=== PATIENT | female | born 1965 | race Caucasian/White ===

== ENCOUNTER 2019-12-16 12:51 | Inpatient (IN) | payer BC, OTHER ==
[2019-12-16 14:04] LABS: Urine Blood NEGATIVE (NEG); Urine Glucose NEGATIVE (NEG); Urine Protein TRACE (NEG); Urine Specific Gravity 1.025 (1.005-1.030); Urine pH 5.5 (5.0-7.0)
[2019-12-16 14:06] LABS: Urine Bacteria 20-50 /HPF (<20); Urine Culture Reflex Order REFLEXED; Urine Mucus 1+ /HPF (NONE SEEN); Urine RBC <5 /HPF (NONE SEEN)
[2019-12-16] MEDS ORDERED: NA CHLORIDE 0.9% 500 ML ONE (14:16)
[2019-12-16] MEDS ORDERED: MEPERIDINE HCL 25 MG/0.5 ML ONE (14:16)
--- NOTE | 2019-12-16 15:51 | RAD REPORT ---
EXAM DESCRIPTION: CT - Abdomen Pelvis Wo Contrast - 12/16/2019 3:44 pm CLINICAL HISTORY: Abdominal pain. ABD PAIN COMPARISON: No comparisons TECHNIQUE: CT imaging of the abdomen and pelvis was performed without contrast. Solid organ and vasc ular assessment is limited due to lack of IV contrast. All CT scans are performed using dose optimization technique as appropriate and may include automated exposure control or mA/KV adjustment according to patient size. FINDINGS: The lower lung serrano are clear. The liver, spleen, pancreas, adrenal glands and kidneys are within normal limits for a limited non-co ntrast examination.22 mm right renal cyst. No bowel obstruction, free air, free fluid or abscess. Appendix is dilated to 18 mm with surrounding inflammatory changes compatible with acute appendicitis. Prominent air bubble in the appendix is fior picious for early perforation. The osseous structures are within normal limits. IMPRESSION: Acute appendicitis with findings of early perforation noted. A limited non-contrast examination was performed as detailed.
--- NOTE | 2019-12-16 16:14 | EDPHYS ---
Physician Documentation [facility] Name: Sylwia Jones Age: 54 yrs Sex: Female : 1965 Arrival Date: 12/16/2019 Time: 12:54 Bed 14 Private MD: ED Physician Janak Varner HPI: 12/15 14:29 This 54 yrs old Female presents to ER via Wheelchair with complaints of rn Constipation, Abdominal Pain, Fever, Headache. 14:29 The patient reports fever, not measured (subjective). Onset: The symptoms/episode rn began/occurred 4 day(s) ago. Modifying factors: there are no obvious modifying factors. Severity of symptoms: At their worst the symptoms were mild in the emergency department the symptoms are unchanged. The patient has experienced similar episodes in the past. Reports several days of constipation followed by non-bloody diarrhea and lower abd cramping, + darker urine, feels like similar to 's diverticulitis, came for evaluation of diverticulitis. . 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 - Social history:: Smoking status: unknown. - Family history:: not pertinent. - Hospitalizations: : No recent hospitalization is reported. ROS: 14:29 Constitutional: Negative for chills, and weight loss, Eyes: Negative for injury, pain, rn redness, and discharge, Neck: Negative for injury, pain, and swelling, Cardiovascular: Negative for chest pain, palpitations, and edema, Respiratory: Negative for shortness of breath, cough, wheezing, and pleuritic chest pain, Abdomen/GI: + lower abd pain and diarrhea : + darker urine MS/Extremity: Negative for injury and deformity, Skin: Negative for injury, rash, and discoloration, Neuro: Negative for numbness, tingling, and seizure. Exam: 14:29 Constitutional: This is a well developed, well nourished patient who is awake, alert, rn and in no acute distress. Head/Face: Normocephalic, atraumatic. ENT: MMM Cardiovascular: Regular rate and rhythm. No pulse deficits. Respiratory: No increased work of breathing, no retractions or nasal flaring. Abdomen/GI: soft, + mild LLQ/RLQ/suprapubic tenderness Skin: Warm, dry MS/ Extremity: Pulses equal, no cyanosis. Neuro: Awake and alert, GCS 15 Vital Signs: 13:03 BP 126 / 71; Pulse 95; Resp 17; Temp 98.1; Pulse Ox 99% ; Weight 100.7 kg; Height 5 ft. bp 7 in. (170.18 cm); 14:00 BP 116 / 67; Pulse 100; Resp 16; Pulse Ox 98% ; bp 15:08 BP 101 / 64; Pulse 98; Resp 16; Pulse Ox 97% ; bp 15:38 BP 107 / 65; Pulse 95; Resp 16; Pulse Ox 100% ; bp 16:00 BP 119 / 71; Pulse 94; Resp 16; Temp 99.0(TE); Pulse Ox 100% on R/A; mh5 17:33 BP 115 / 67; Pulse 98; Resp 16; Pulse Ox 99% ; bp 13:03 Body Mass Index 34.77 (100.70 kg, 170.18 cm) bp MDM: 13:17 Patient medically screened. rn 16:12 Differential diagnosis: viral Infection, bacterial infection, gastroenteritis, rn diverticulitis, appendicitis. Data reviewed: vital signs, nurses notes, lab test result(s), radiologic studies, CT scan, and as a result, I will admit patient. Counseling: I had a detailed discussion with the patient and/or guardian regarding: the historical points, exam findings, and any diagnostic results supporting the discharge/admit diagnosis, lab results, radiology results, the need for further work-up and treatment in the hospital. Response to treatment: the patient's symptoms have mildly improved after treatment. Admission orders: after a detailed discussion of the patient's condition and case, the admit orders are written by me. 16:16 ED course: Consulted with Dr. 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 . 12/15 13:26 Order name: Basic Metabolic Panel rn 12/15 13:26 Order name: CBC with Diff rn 12/15 13:26 Order name: Creatinine for rn transfer 12/15 13:26 Order name: Hepatic Function rn 12/15 13:26 Order name: Lipase rn 12/15 13:26 Order name: Urine Microscopic Only; Complete Time: 14:35 rn 12/15 13:59 Order name: Urine Dipstick--Ancillary (enter results); Complete Time: 14:35 eb 12/15 13:59 Order name: Urine --Ancillary (enter results); Complete Time: 14:35 12/15 14:07 Order name: Urine Culture EDIA 12/15 15:45 Order name: Abdomen ; Complete Time: 15:59 EDIA 12/15 13:26 Order name: IV Saline Lock; Complete Time: 14:17 rn 12/15 13:26 Order name: Labs collected and sent; Complete Time: 14:17 rn 12/15 13:26 Order name: Urine Dipstick-Ancillary (obtain specimen); Complete Time: 14:15 rn Administered Medications: 13:45 Drug: NS 0.9% 500 ml Route: IV; Rate: bolus; Site: right antecubital; bp 17:10 Follow up: IV Status: Completed infusion; IV Intake: 500ml bp 13:50 Drug: Demerol 25 mg Route: IVP; Site: right antecubital; bp 15:09 Follow up: Response: Pain is decreased bp 16:10 Drug: Zosyn 3.375 grams Route: IVPB; Infused Over: 60 mins; Site: right antecubital; bp 17:10 Follow up: IV Status: Completed infusion; IV Intake: 100ml bp Disposition: 12/16/19 16:13 Hospitalization ordered by Be Rasheed for Inpatient Admission. Preliminary diagnosis is Acute appendicitis - With Microperforation. - Bed requested for Telemetry/MedSurg (Inpatient). - Status is Inpatient Admission. bp - Condition is Stable. - Problem is new. - Symptoms have improved. Signatures: Dispatcher [employer] EDIA Janak Varner MD MD rn Aguilar, Jose RN RN Bernardino Sandoval RN RN Shanell Vásquez Corrections: (The following items were deleted from the chart) 15:45 13:27 Abdomen Pelvis W Con+CT.RAD.BRZ ordered. EDIA EDIA 16:14 16:13 Hospitalization Ordered by Be Rasheed MD for Inpatient Admission. Preliminary rn diagnosis is Acute appendicitis. Bed requested for Telemetry/MedSurg (Inpatient). Status is Inpatient Admission. Condition is Stable. Problem is new. Symptoms have improved. rn 16:28 16:14 12/16/2019 16:13 Hospitalization Ordered by Be Rasheed MD for Inpatient eb Admission. Preliminary diagnosis is Acute appendicitis - With Microperforation. Bed requested for Telemetry/MedSurg (Inpatient). Status is Inpatient Admission. Condition is Stable. Problem is new. Symptoms have improved. rn 16:34 16:28 12/16/2019 16:13 Hospitalization Ordered by Be Rasheed MD for Inpatient ja1 Admission. Preliminary diagnosis is Acute appendicitis - With Microperforation. Bed requested for Telemetry/MedSurg (Inpatient). Status is Inpatient Admission. Condition is Stable. Problem is new. Symptoms have improved. eb 17:34 16:34 12/16/2019 16:13 Hospitalization Ordered by Be Rasheed MD for Inpatient bp Admission. Preliminary diagnosis is Acute appendicitis - With Microperforation. Bed requested for Telemetry/MedSurg (Inpatient). Status is Inpatient Admission. Condition is Stable. Problem is new. Symptoms have improved. ja1
--- NOTE | 2019-12-16 16:14 | ER ---
Nurse's Notes [facility] Name: Sylwia Jones Age: 54 yrs Sex: Female : 1965 Arrival Date: 12/16/2019 Time: 12:54 Bed 14 Private MD: Diagnosis: Acute appendicitis-With Microperforation Presentation: 12/15 13:03 Chief complaint: Patient states: ABDOMINAL CRAMPING, DIARRHEA x4 DAYS. Coronavirus bp screen: Proceed with normal triage. Ebola Screen: No symptoms or risks identified at this time. Initial Sepsis Screen: Does the patient meet any 2 criteria? No. Patient's initial sepsis screen is negative. Does the patient have a suspected source of infection?. Risk Assessment: Do you want to hurt yourself or someone else? Patient reports no desire to harm self or others. Onset of symptoms is unknown. 13:03 Method Of Arrival: Wheelchair bp 13:03 Acuity: CHARLENE 3 bp Triage Assessment: 13:05 General: Appears in no apparent distress. comfortable, obese, Behavior is calm, bp cooperative, appropriate for age. Pain: Complains of pain in abdomen. EENT: No deficits noted. Neuro: No deficits noted. Cardiovascular: No deficits noted. Respiratory: No deficits noted. GI: No signs and/or symptoms were reported involving the gastrointestinal system. : No signs and/or symptoms were reported regarding the genitourinary system. Derm: No deficits noted. Musculoskeletal: No deficits noted. 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 - Social history:: Smoking status: unknown. - Family history:: not pertinent. - Hospitalizations: : No recent hospitalization is reported. Screenin:13 Abuse screen: Denies threats or abuse. Denies injuries from another. Nutritional bp screening: No deficits noted. Tuberculosis screening: No symptoms or risk factors identified. Fall Risk None identified. Assessment: 13:11 General: SEE TRIAGE NOTE. Pain: Complains of pain in abdomen. Neuro: No deficits noted. bp Cardiovascular: No deficits noted. Respiratory: No deficits noted. GI: Bowel sounds present X 4 quads. Abdomen is tender to palpation X 4 quads. : No signs and/or symptoms were reported regarding the genitourinary system. EENT: No signs and/or symptoms were reported regarding the EENT system. EENT: No deficits noted. Derm: No deficits noted. Musculoskeletal: No deficits noted. 14:00 Reassessment: CT CONTACTED, PT COMPLETED PO CONTRAST. bp 15:08 Reassessment: PT RESTING QUIETLY, VS STABLE. CT PENDING. bp 15:37 Reassessment: PT TO CT WITH DENTAL SERVICES DIRECTOR. bp 16:05 Reassessment: PER MD, CT ABD INDICATES +APPY AND POSSIBLE PERFORATION. SURG C/S PENDING.bp 16:45 Reassessment: PER DR TURNER, PT TO GO TO OR IN NEXT 1 HR. ADMIT ON HOLD FOR OR. bp 17:11 Reassessment: OR AT B/S. PT YULISA FOR SURGERY. bp Vital Signs: 13:03 BP 126 / 71; Pulse 95; Resp 17; Temp 98.1; Pulse Ox 99% ; Weight 100.7 kg; Height 5 ft. bp 7 in. (170.18 cm); 14:00 BP 116 / 67; Pulse 100; Resp 16; Pulse Ox 98% ; bp 15:08 BP 101 / 64; Pulse 98; Resp 16; Pulse Ox 97% ; bp 15:38 BP 107 / 65; Pulse 95; Resp 16; Pulse Ox 100% ; bp 16:00 BP 119 / 71; Pulse 94; Resp 16; Temp 99.0(TE); Pulse Ox 100% on R/A; mh5 17:33 BP 115 / 67; Pulse 98; Resp 16; Pulse Ox 99% ; bp 13:03 Body Mass Index 34.77 (100.70 kg, 170.18 cm) bp ED Course: 12:54 Patient arrived in ED. ag5 12:57 Bernardino Silva, RN is Primary Nurse. bp 13:06 Triage completed. bp 13:10 Arm band placed on. bp 13:17 Janak Varner MD is Attending Physician. rn 13:18 Patient has correct armband on for positive identification. Bed in low position. Call mh5 light in reach. Side rails up X 1. Warm blanket given. Pulse ox on. NIBP on. 14:02 Patient has correct armband on for positive identification. [facility] 14:02 Initial lab(s) drawn, by wa, sent to lab. Urine collected: clean catch specimen, clear. 5 Inserted saline lock: 22 gauge in right antecubital area, using aseptic technique. Blood collected. 15:43 CT completed. Patient tolerated procedure well. Patient moved back from CT. 3 16:13 Be Rasheed MD is Hospitalizing Provider. rn 17:12 No provider procedures requiring assistance completed. Patient admitted, IV remains in bp place. Administered Medications: 13:45 Drug: NS 0.9% 500 ml Route: IV; Rate: bolus; Site: right antecubital; bp 17:10 Follow up: IV Status: Completed infusion; IV Intake: 500ml bp 13:50 Drug: Demerol 25 mg Route: IVP; Site: right antecubital; bp 15:09 Follow up: Response: Pain is decreased bp 16:10 Drug: Zosyn 3.375 grams Route: IVPB; Infused Over: 60 mins; Site: right antecubital; bp 17:10 Follow up: IV Status: Completed infusion; IV Intake: 100ml bp Intake: 17:10 IV: 500ml; Total: 500ml. bp 17:10 IV: 100ml; Total: 600ml. bp Outcome: 16:13 Decision to Hospitalize by Provider. rn 17:12 Admitted to OR accompanied by nurse, via stretcher. bp 17:12 Condition: stable 17:12 Instructed on the need for admit. 17:34 Patient left the ED. bp Signatures: Dispatcher [employer] EDMS Janak Varner MD MD rn Martinez, Maria [facility] Bernardino Silva RN RN bp Willis, Michelle 3 Sadia Zamorano 5 Corrections: (The following items were deleted from the chart) 15:45 15:44 In radiology for Abdomen Pelvis W Con+CT.RAD.BRZ. EDMS EDMS 16:05 16:00 BP 119 / 71; Pulse 94bpm; Resp 16bpm; Pulse Ox 100% RA; 5 [facility]
[2019-12-16] MEDS ORDERED: PIPER/TAZO/NS 3.375gm 3.375 GM/100 ML BAG ONE (16:15)
[2019-12-16] MEDS ORDERED: propofoL 200 MG/20 ML VIAL IV ONE (17:06)
[2019-12-16] MEDS ORDERED: FENTANYL CITR 100 MCG/2 ML ONE (17:06)
[2019-12-16] MEDS ORDERED: ONDANSETRON 4 MG/2 ML VIAL ONE (17:07)
[2019-12-16] MEDS ORDERED: GLYCOPYRROLATE 0.2 MG/ML SYR ONE (17:07)
[2019-12-16] MEDS ORDERED: MIDAZOLAM HCL 2 MG/2 ML INJ ONE (17:07)
[2019-12-16] MEDS ORDERED: ROCURONIUM 50 MG/5 ML VIAL IV ONE (17:08)
[2019-12-16] MEDS ORDERED: KETOROLAC 30 MG/ML INJ ONE (17:08)
[2019-12-16] MEDS ORDERED: MORPHINE 10 MG/ML VIAL ONE (17:08)
[2019-12-16] MEDS ORDERED: NEOSTIGMINE 1 MG/ML -5 ML ONE (17:09)
[2019-12-16] MEDS ORDERED: METOCLOPRAMIDE 10 MG/2mL INJ ONE (17:09)
[2019-12-16] MEDS ORDERED: LIDOCAINE 1% MPF 5 ML VIAL ONE (17:10)
[2019-12-16 17:24] LABS: Basophils % 0.5 % (0-1.3); Hematocrit 37.9 % (36.0-45.0); MPV 7.3 fL (7.6-11.3); RBC Red Blood Cell Count 4.42 M/uL (3.86-4.86)
[2019-12-16] MEDS ORDERED: Ringers Lactate 1,000 ML IV ONE ×2 (17:28→19:20)
[2019-12-16 17:40] LABS: ALT/SGPT 40 U/L (12-78); AST/SGOT 29 U/L (15-37); Albumin 2.9 g/dL (3.4-5.0); Alkaline Phosphatase 96 U/L (45-117); BUN Blood Urea Nitrogen 10 mg/dL (7-18); Bicarbonate 25 mmol/L (21-32); Bilirubin Direct 0.2 mg/dL (0-0.2); Bilirubin Total 0.5 mg/dL (0.2-1.0); Glucose Level 92 mg/dL (74-106); Lipase 82 U/L (73-393); Protein, Total 7.6 g/dL (6.4-8.2); Sodium Level 137 mmol/L (136-145)
--- NOTE | 2019-12-16 19:02 | P.BOP ---
Preoperative diagnosis: Perforated appendicitis, peritonitis Postoperative diagnosis: same plus intrabdominal abscess, intrabdominal adhesions Primary procedure: 1. Laparoscopic perforated appendectomy Secondary procedure: 2. Laparoscopic extensive lysis of adhesions Other procedure(s): 3. Laparoscopic drainage of intrabdominal abscess Estimated blood loss: <20cc Specimen: appendix, intraabd abscess culture Findings: see dictation Anesthesia: General Complications: None Drain(s): SERG drain Transferred to: Recovery Room Condition: Good
[2019-12-16] MEDS ORDERED: ONDANSETRON 4 MG/2 ML VIAL IV PRN (19:06)
[2019-12-16] MEDS ORDERED: HYDROMORPHONE HCL 1 MG/ML INJ IV PRN (19:25)
[2019-12-16] MEDS ORDERED: PROMETHAZINE INJ 25 MG/ML AMP ONE (19:36)
[2019-12-16] MEDS ORDERED: Levofloxacin 750mg IV 750 MG/150 ML BAG IV SCH (20:00)
[2019-12-16 20:23] VITALS: BMI 40.6
[2019-12-16] MEDS: NA CHLORIDE 0.9% 1,000 ML IV SCH (21:21)
--- NOTE | 2019-12-16 21:52 | HP ---
Date of Admission: 12/16/2019 Diagnosis: Acute appendicitis, peritonitis, perforated appendix. History Of Present Illness: This is the case of a 54-year-old patient, who has pain for about 4 days . She is normally constipated, so she thought that is what she had, but in the last few hours it got worse to the point that she had to come to the ER. She was having fevers over 101 and a belly ache. She came to the ER, did entire workup, found to have a ruptured appendix. Surgical consult was imm ediately called. The patient states fever of 101, denies any shortness of breath or any chest pain, any dysuria, hematuria, hematochezia, or melena. Patient was advised the importance of colonoscopies . Medical History: Hypothyroidism. Medications: Thyroid medication. Allergies: IODINE AND CELEBREX. Past Surgical History: Include 3 C-sections and a tubal ligation. Social History: She does not smoke, she does not drink alcohol. Review of Systems: Ten points otherwise unremarkable. Physical Examination: General: Patient is awake and alert. HEENT: Pupils are equal and reactive, anicteric. Neck: Supple. Chest: Clear. Abdomen: Right lower quadrant tenderness with guarding and rebound. Psoas signs positive. Rovsing sign positive. Breasts: Deferred. Pelvic: Deferred. Rectal: Deferred. Extremities: Good capillary refill. Neurologic: Cranial nerves 2 through 12 grossly within normal limits. Laboratory Data: Blood work shows WBC count of 16.9, hemoglobin of 12.5, potassium is 4.0, lipase 82 . CAT scan of the abdomen and pelvis interpreted by Dr. Lennon as acute appendicitis with early perfor ation. Assessment: This is a 54-year-old patient, with perforated appendicitis, peritonitis, acute abdomina l pain, intractable abdominal pain. The patient fully explained the need for emergent laparoscopic, possible open appendectomy with benefits, alternatives, and risks, including, but not limited to infe ction, bleeding, damage to adjacent structures, anesthesia complication, [place], and even . She als o understands this may not relieve any symptoms, she might need more than one surgical intervention. She understands we are in a national emergency situation. There is a risk for a coronavirus around, but her case is so emergent that have to be done. She may end up with a drain. She was advised the importance of following with the doctor recommendations and take her antibiotics postoperatively. Jojo orlandowallace understood, signed the consent. The OR was immediately called emergently. DARLENE Voice ID: [id number]
--- NOTE | 2019-12-16 23:18 | OP ---
Date of Procedure: 12/16/2019 Surgeon: Be Rasheed MD Preoperative Diagnosis: Perforated appendicitis, peritonitis. Postoperative Diagnosis: Perforated appendicitis, peritonitis plus intraabdominal abscess, intraabdo ladarius adhesions. Procedure: Laparoscopic perforated appendectomy, laparoscopic lysis of adhesions, laparoscopic drain age of intraabdominal abscess. Specimen: Appendix and intraabdominal abscess culture. Anesthesia: General plus local. Findings: Patient has a perforated appendix. The patient has multiple adhesions, patient has previo us C-sections x3. Those adhesions have to be removed in order for us to get access to the appendix. Patient also and intraabdominal abscess. Indications: This is the case of a female who comes to us with acute perforated appendicitis, acute abdominal pain. The benefits, alternatives, and risks of laparoscopic repair versus open laparoscopi c appendectomy were fully explained to the patient, including not limited to infection, bleeding, dam age to adjacent structures, anesthesia as complications, LA and even . She also understands thi s may not relieve any symptoms. She might need more than one surgical intervention. She understood, signed the consent. Description Of Procedure: The patient was emergently brought to the operating room, placed in supine position. Anesthesia was done without complication. Abdominal area was prepped and draped in a ammy rile fashion. Marcaine 0.5% was injected for local anesthetic, followed by sharp incision of skin in the infraumbilical region. Incision was carried down to the fascia, which was opened under direct v ision. Peritoneum was encountered, opened under direct vision. Vicryl #1 placed inside the fascia. Lele trocar was carefully introduced. No bleeding was obtained. Immediately, we noticed several adhesions may need from the bowel to the ovary and also to the omentum to the large bowel for me to clean that area, I have to do lysis of adhesions. Lysis of adhesions was done with the hel p of two 5 mm trocars placed in the suprapubic and left lower quadrant area under direct visualizatio n and also the LigaSure device, we proceed to do lysis of adhesions to allow access to this appendix. While we spent a significant amount of time of this lysis of adhesions, we were able to visualize t he area of appendix and then after that, I proceeded then to transect the appendix after creating a w indow in the base of the appendix, it seems to be spared from the perforation. The base of the appen [place] was transected with an Endo-ALVIN 45 mm 3.5, and the mesoappendix Endo ALVIN 45 mm 2.5. Appendix rem nick from the abdominal cavity using EndoCatch through the umbilical incision. The area was inspecte d once again. The area of the abscess in the right lower quadrant was carefully and profusely irriga carole until clean. The area of the lysis of adhesions looks intact. The area of the appendix looks in tact. I spent half the time of the surgery just in lysis of adhesions. The area of adhesions shows no enterotomies, no bleeding. At that moment, I proceeded to leave a SERG drain in the right lower travis drant exiting through 1 of the trocar sites and securing that with 3-0 nylon. After that, I proceede d to remove the trocars under direct vision, deflated the pneumoperitoneum, closed the fascia with #1 Vicryl, irrigated subcutaneous tissue, closed that with 3-0 chromic and skin with davis. Sponge c ount and instrument counts were correct. Patient tolerated the procedure well. Patient was sent to Recovery in stable condition. Patient will remain on antibiotics, n.p.o., IV hydration, resuscitatio n. MELANIE/MODL Voice ID: [id number] Report ID: [id number]
[2019-12-17] MEDS: METRONIDAZOLE 500mg IVPB 500 MG/100 ML BAG IV SCH ×5 (00:14→23:53)
[2019-12-17] MEDS: MORPHINE 2 MG/ML SYR IV PRN ×2 (00:44→03:26)
[2019-12-17] MEDS: HYDROCODONE/APAP 5/325 MG TAB PO PRN ×4 (05:04→22:28)
[2019-12-17 05:55] LABS: Absolute Lymphocytes (CBC) 1.6 K/uL (0.7-4.9); Basophils % 0.7 % (0-1.3); Hematocrit 35.6 % (36.0-45.0); Lymphocytes % 7.5 % (15.3-44.8); MPV 7.6 fL (7.6-11.3); RBC Red Blood Cell Count 4.12 M/uL (3.86-4.86)
[2019-12-17] MEDS: NA CHLORIDE 0.9% 1,000 ML IV SCH ×3 (06:00→20:11)
[2019-12-17 06:09] LABS: Potassium 4.1 mmol/L (3.5-5.1); Sodium Level 139 mmol/L (136-145)
[2019-12-17 06:10] LABS: BUN Blood Urea Nitrogen 11 mg/dL (7-18); Bicarbonate 19 mmol/L (21-32); Glucose Level 86 mg/dL (74-106)
[2019-12-17 08:01] LABS: Blood Morphology Comment NOT SEEN (NOT SEEN); Platelet Estimate ADEQ
[2019-12-17] MEDS ORDERED: Levofloxacin 750mg IV 750 MG/150 ML BAG IV SCH (13:00)
[2019-12-17] MEDS: Levofloxacin 750mg IV 750 MG/150 ML BAG IV SCH (15:02)
[2019-12-17 16:55] VITALS: O2SAT 98
[2019-12-18] MEDS: NA CHLORIDE 0.9% 1,000 ML IV SCH ×3 (02:00→22:32)
[2019-12-18] MEDS: METRONIDAZOLE 500mg IVPB 500 MG/100 ML BAG IV SCH ×3 (06:00→17:01)
[2019-12-18] MEDS: HYDROCODONE/APAP 5/325 MG TAB PO PRN ×2 (11:53→17:06)
[2019-12-18 14:04] LABS: Absolute Lymphocytes (CBC) 1.6 K/uL (0.7-4.9); Basophils % 0.8 % (0-1.3); MPV 7.1 fL (7.6-11.3); RBC Red Blood Cell Count 3.98 M/uL (3.86-4.86)
[2019-12-18 14:19] LABS: BUN Blood Urea Nitrogen 4 mg/dL (7-18); Bicarbonate 25 mmol/L (21-32); Glucose Level 130 mg/dL (74-106); Potassium 3.6 mmol/L (3.5-5.1); Sodium Level 140 mmol/L (136-145)
[2019-12-18] MEDS: Levofloxacin 750mg IV 750 MG/150 ML BAG IV SCH (15:07)
[2019-12-19] MEDS: METRONIDAZOLE 500mg IVPB 500 MG/100 ML BAG IV SCH ×3 (00:26→12:26)
[2019-12-19] MEDS: HYDROCODONE/APAP 5/325 MG TAB PO PRN (02:05)
[2019-12-19 10:48] VITALS: BP 123/67; TEMP 97
--- NOTE | 2019-12-20 00:45 | DS ---
Date of Discharge: 12/19/2019 Diagnosis: Perforated appendicitis with abscess. Hospital Course: The patient is doing better, tolerating diet, afebrile. No shortness of breath, no chest pain, no abdominal pain at this time. Review of Systems: Ten points otherwise unremarkable. Physical Examination: Chest: Clear. Abdomen: Soft and depressible. Intact surgical sites. SERG drain, serosanguineous and no pus. Extremities: Good capillary refill. Laboratory Data: Blood work shows WBC count 12.3 coming down from 21. Platelets of 384. Patient expressed her wishes in the beginning to be discharged home as soon as possible, especially d uring this yi virus national crisis. The patient is doing well. She is tolerating diet. No abd ominal pain. So, we have switched the Cipro and Flagyl to by mouth and then we are going to send her home with a soft diet. No heavy lifting. Followup: Follow up in my office on this Tuesday. SERG drain care. If she develops any fever, abdomin al pain, come to the ER immediately. MELANIE/NATALIA Voice ID: [id number] Report ID: [id number]
== END 2019-12-19 15:35 | disposition home or self-care (01) | DRG 337 ==
LOC: ER 12:51 → ERHOLD 17:10 → 2ND 19:55
PROVIDERS: ADMIT Surgery; ATTEND Surgery
PROC: 0DTJ4ZZ Resection of Appendix, Percutaneous Endoscopic Approach (ICD-10-PCS; 2019-12-16)
PROC: 0W9G40Z Drainage of Peritoneal Cavity with Drainage Device, Percutaneous Endoscopic Approach (ICD-10-PCS; 2019-12-16)
PROC: 0DNE4ZZ Release Large Intestine, Percutaneous Endoscopic Approach (ICD-10-PCS; 2019-12-16)
PROC: 0DNU4ZZ Release Omentum, Percutaneous Endoscopic Approach (ICD-10-PCS; principal; 2019-12-16 17:00)
DX: K35.33 Acute appendicitis with perforation, localized peritonitis, and gangrene, with abscess (principal); E03.9 Hypothyroidism, unspecified; Z88.8 Allergy status to other drugs, medicaments and biological substances; Z91.041 Radiographic dye allergy status; Z79.890 Hormone replacement therapy; K66.0 Peritoneal adhesions (postprocedural) (postinfection); N73.6 Female pelvic peritoneal adhesions (postinfective)
CPT/HCPCS: 36415; 74176; 80048; 80076; 81003; 81015; 81025; 82947; 83690; 85025; 87070; 87075; 87086; 87088; 87205; 88304; 96361; 96365; 96375; 97116; 97161; 99285; J2175; J2250; J2270; J2405; J2543; J2550; J2704; J2710; J2765; J3010; J7030; J7040; J7120